=== PATIENT | female | born 1950 | race Asian ===

== ENCOUNTER 2020-08-10 20:42 | Inpatient (IN) | payer MEDICARE ==
[~2020-08-10] VITALS: Ht 149.9 cm; Wt 70.8 kg
[2020-08-10 21:25] LABS: BASOPHILS ABSOLUTE AUTO 0.04 K/mm3 (0.00-0.23); BASOPHILS PERCENT AUTO 1 % (0-2); EOSINOPHILS ABSOLUTE AUTO 0.29 K/mm3 (0.00-0.68); EOSINOPHILS PERCENT AUTO 5 % (0-6); Hematocrit 31.6 % (33.0-51.0); Hemoglobin 10.9 g/dL (11.5-16.0); IMMATURE GRAN ABSOLUTE AUTO 0.01 K/mm3 (0.00-0.10); IMMATURE GRAN PERCENT AUTO 0 % (0-1); LYMPHOCYTES ABSOLUTE AUTO 2.18 K/mm3 (0.84-5.20); LYMPHOCYTES PERCENT AUTO 35 % (21-46); MONOCYTES PERCENT AUTO 10 % (4-13); Mean Corpuscular HGB 33.9 pg (26.0-34.0); Mean Corpuscular HGB Conc 34.5 g/dL (31.5-36.5); Mean Corpuscular Volume 98 fL (80-100); Mean Platelet Volume 9.9 fL (9.1-12.4); NEUTROPHILS ABSOLUTE AUTO 3.14 K/mm3 (1.96-9.15); NEUTROPHILS PERCENT AUTO 50 % (41-73); Platelet Count 302 K/mm3 (150-400); RDW Coefficient Variation 13.1 % (11.7-14.2); RDW Standard Deviation 47.5 fL (35.1-46.3); Red Blood Cell Count 3.22 M/mm3 (3.80-5.20); White Blood Cell Count 6.26 K/mm3 (4.00-11.30)
[2020-08-10 22:12] LABS: Albumin, Blood 3.8 g/dL (3.4-5.0); Bilirubin, Total 0.5 mg/dL (0.1-1.0); Bun/Creatinine Ratio 6.6 (12.0-20.0); Calcium, Blood 9.5 mg/dL (8.5-10.1); Creatinine, Blood 6.41 mg/dL (0.40-1.00); Globulin, Blood 3.9 g/dL (2.2-4.0); Potassium, Blood 4.5 mmol/L (3.5-5.5); Total Protein, Blood 7.7 g/dL (6.4-8.2)
[2020-08-10 22:16] LABS: Troponin I 0.81 ng/mL (0.000-0.040)
[2020-08-11 00:59] LABS: International Normalized Ratio 0.96; Prothrombin Time Results 10.4 Sec (9.7-11.5)
[2020-08-11 02:45] LABS: CHOL/HDL RATIO 4.9; Cholesterol 161 mg/dL (50-200); HDL Cholesterol 33 mg/dL (>39); LDL/HDL RATIO Unable to Calculate; Low Density Lipoprotein Chol Unable to Calculate mg/dL (0-110); Triglycerides 551 mg/dL (30-160); Very Low Density Lipoprot Chol Unable to Calculate mg/dL (6-32)
[2020-08-11 10:49] LABS: BASOPHILS ABSOLUTE AUTO 0.05 K/mm3 (0.00-0.23); BASOPHILS PERCENT AUTO 1 % (0-2); EOSINOPHILS PERCENT AUTO 6 % (0-6); IMMATURE GRAN ABSOLUTE AUTO 0.01 K/mm3 (0.00-0.10); IMMATURE GRAN PERCENT AUTO 0 % (0-1); LYMPHOCYTES PERCENT AUTO 33 % (21-46); MONOCYTES ABSOLUTE AUTO 0.41 K/mm3 (0.16-1.47); MONOCYTES PERCENT AUTO 8 % (4-13); Mean Corpuscular HGB 33.7 pg (26.0-34.0); Mean Corpuscular HGB Conc 34.5 g/dL (31.5-36.5); Mean Corpuscular Volume 98 fL (80-100); Mean Platelet Volume 9.9 fL (9.1-12.4); NEUTROPHILS ABSOLUTE AUTO 2.52 K/mm3 (1.96-9.15); NEUTROPHILS PERCENT AUTO 52 % (41-73); Platelet Count 275 K/mm3 (150-400); RDW Coefficient Variation 13.1 % (11.7-14.2); RDW Standard Deviation 46.8 fL (35.1-46.3); Red Blood Cell Count 2.97 M/mm3 (3.80-5.20); White Blood Cell Count 4.89 K/mm3 (4.00-11.30)
[2020-08-11 10:59] LABS: Bun/Creatinine Ratio 6.5 (12.0-20.0); Calcium, Blood 9.1 mg/dL (8.5-10.1); Creatinine, Blood 6.81 mg/dL (0.40-1.00); Potassium, Blood 4.1 mmol/L (3.5-5.5)
[2020-08-11] MEDS ORDERED: TOUJEO MAX300 UNIT/2 SC (11:40)
[2020-08-11] MEDS ORDERED: COLCRYS0.6 M1 PO (11:41)
[2020-08-11] MEDS ORDERED: VITAMIN D31000 UNI1 PO (11:41)
[2020-08-11] MEDS ORDERED: HUMALOG KW100 UNIT/1 SC (11:41)
[2020-08-11] MEDS ORDERED: HYDRA25 PO (11:42)
[2020-08-11] MEDS ORDERED: METOPROLOL SUCC25 MG PO (11:42)
[2020-08-11] MEDS ORDERED: MULVITB PO (11:42)
[2020-08-11] MEDS ORDERED: ATOR40TA PO (11:43)
[2020-08-11] MEDS ORDERED: ALLO300 PO (15:55)
[2020-08-11] MEDS ORDERED: Calcium Acetat667 MG PO (15:56)
--- NOTE | 2020-08-11 19:55 | NUR ---
SHIFT SUMMARY PT ALERT AND ORIENTED X 4. HR STABLE. BP STABLE. NO CP OR PRESSURE REPORTED. OXYGEN SATURATION MAINTAINED ABOVE 92% ON RA. PHYSICIAN NOTIFIED OF NO VTE PROPHYLAXIS. ORDERS PROVIDED, SEE EHR. DIALYSIS THIS NOC IN ROOM. REPORT GIVEN TO GAVINO MORGAN.
--- NOTE | 2020-08-11 21:36 | NUR ---
AMA SPOKE AT LENGTH WITH THE PATIENT ABOUT HER DESIRE TO LEAVE [place]. PT STATES THAT SHE UNDERSTANDS THE RISKS AND THAT SHE IS LEAVING TOO SOON FOR THE COMPLETION OF HER STRESS TEST AND CARDIAC WORKUP. STATES "I FEEL MUCH BETTER AFTER GETTING DIALYSIS AND I KNOW THAT I WILL BE ABLE TO STOP ALONG MY TRIP TO [place] IF I START FEELING WORSE". DISCUSSED RISKS UP TO AND INCLUDING AND PT CONTINUES TO STATE THAT SHE HAS ALREADY CALLED FAMILY TO PICK HER UP, SHE IS ON THE WAY TO [place] AND NEEDS TO LEAVE. PROVIDED PAPERWORK AND PT WAS ABLE TO SIGN AMA, AWAITING FAMILY MEMBER'S ARRIVAL. UPDATED PRIMARY RN EDDIE.
--- NOTE | 2020-08-11 23:10 | NUR ---
AMA PT SPOKE TO MOLDER VACUUM ABOUT THE RISKS OF GOING [facility]. PT INSISTANT ON LEAVING, NEEDING TO DRIVE TO [place]. IV'S REMOVED, TELEMETRY REMOVED. PT'S BELONGINGS WITH PT. PT WHEELED OUT OF ROOM AT APPROX 2145.
== END 2020-08-11 21:50 | disposition left against medical advice (07) | DRG 280 ==
LOC: ER 20:42 → PCU 08-11 00:02 → ERHOLD 08-11 00:02 → PCU 08-11 15:20
PROVIDERS: Pharmacist; Physician Assistant; ADMIT Family Medicine
DX: I21.4 Non-ST elevation (NSTEMI) myocardial infarction (principal); N18.6 End stage renal disease; I13.2 Hypertensive heart and chronic kidney disease with heart failure and with stage 5 chronic kidney disease, or end stage renal disease; I50.32 Chronic diastolic (congestive) heart failure; I42.0 Dilated cardiomyopathy; Z66 Do not resuscitate; D63.1 Anemia in chronic kidney disease; I35.0 Nonrheumatic aortic (valve) stenosis; E11.22 Type 2 diabetes mellitus with diabetic chronic kidney disease; E11.40 Type 2 diabetes mellitus with diabetic neuropathy, unspecified; E78.5 Hyperlipidemia, unspecified; M10.9 Gout, unspecified; I25.2 Old myocardial infarction; Z99.2 Dependence on renal dialysis; Z95.5 Presence of coronary angioplasty implant and graft; Z98.890 Other specified postprocedural states; Z88.0 Allergy status to penicillin; Z88.6 Allergy status to analgesic agent; Z88.8 Allergy status to other drugs, medicaments and biological substances; Z79.4 Long term (current) use of insulin; Z79.899 Other long term (current) drug therapy
CPT/HCPCS: 71045; 71046; 78451; 80048; 80053; 80061; 82947; 84484; 85025; 85610; 85730; 93005; 93010; 93017; 96365; 96366; 96376; 99285-25; A9270; A9500; J0706; J1644; J2785